=== PATIENT | female | born 2000 ===

== ENCOUNTER 2025-01-23 12:10 | Outpatient (CLI) | payer OTHER, SELFPAY ==
--- NOTE | 2025-01-23 12:15 | CRLHL7_ITS ---
For Patients: As a result of the Century Cures Act, medical imaging exams and procedure reports are released immediately into your electronic medical record. You may view this report before your referring provider. If you have questions, please contact your health care provider. OB ULTRASOUND LESS THAN 14 WEEKS CLINICAL HISTORY: Dating and viability. TECHNIQUE: Ultrasound OB pelvis transabdominal. Real-time grayscale imaging of the pelvis was performed. COMPARISON: None. FINDINGS: Imaging: TA. LMP: Unsure, irregular. CRL: 2.2 cm, 8 weeks 6 days. DAT 08/29/2025. FHR: 189 bpm. GEST SAC: 2.7 cm, appears WNL. YOLK SAC: 3.7 mm, appears WNL. RIGHT OV: 2.7 x 1.7 x 1.4 cm. LEFT OV: Not visualized. IMPRESSION: 1. Single living intrauterine measures 8 weeks 6 days with sonographic due date 08/29/2025. 2. heart rate 189 bpm. Dom Jansen M.D. Diagnostic Radiologist [email or web address] Transcribed: 1:47 pm DW/Dictated by: Dom Jansen MD @ 01/23/2025 12:58:00 PM (Electronically Signed)
== END 2025-01-23 12:11 | disposition home or self-care (01) ==
LOC: US 12:11
PROVIDERS: Visit Provider Advanced Practice Midwife
DX: Z34.91 Encounter for supervision of normal pregnancy, unspecified, first trimester (principal); Z3A.08 8 weeks gestation of pregnancy
CPT/HCPCS: 76801

== ENCOUNTER 2025-01-23 13:07 | Outpatient (CLI) | payer OTHER, SELFPAY ==
[2025-01-23 19:52] LABS: Chlamydia DNA Amplified* NOT DETECTED (No Detected); GC DNA Amplified* NOT DETECTED (No Detected)
== END 2025-01-23 13:08 | disposition home or self-care (01) ==
PROVIDERS: Visit Provider Registered Nurse
DX: Z34.91 Encounter for supervision of normal pregnancy, unspecified, first trimester (principal); Z3A.08 8 weeks gestation of pregnancy
CPT/HCPCS: 82565; 82570; 83020; 83021; 84156; 84450; 84460; 84520; 85660; 86592; 86703; 86704; 86706; 86762; 86787; 86803; 86850; 86900; 86901; 87086; 87340; 87491; 87591

== ENCOUNTER 2025-01-28 11:38 | Outpatient (CLI) | payer OTHER, SELFPAY ==
[2025-01-28 16:31] LABS: Protein Creatinine Ratio Urine 0.05 (0-0.19)
[2025-01-28 16:44] LABS: Total Volume 24 Hour Urine 1150 ml; Urine Creatinine mg/24 Hour 1489 mg/Day
== END 2025-01-28 11:39 | disposition home or self-care (01) ==
LOC: NPINS 11:41
PROVIDERS: Obstetrics & Gynecology; Visit Provider Nurse Practitioner Gerontology
DX: Z34.91 Encounter for supervision of normal pregnancy, unspecified, first trimester (principal)
CPT/HCPCS: 82570; 84156

== ENCOUNTER 2025-02-27 14:53 | Outpatient (CLI) | payer OTHER, SELFPAY | END 2025-02-27 14:54 | disposition home or self-care (01) | LOC: FRMREF 14:54 | PROVIDERS: Visit Provider Obstetrics & Gynecology | DX: R10.30 Lower abdominal pain, unspecified (principal) | CPT/HCPCS: 87086 ==